=== PATIENT | female | born 1950 | race African-American/Black ===

== ENCOUNTER 2017-10-18 07:12 | Day surgery (SDC) | payer MEDICAID ==
[~2017-10-18] VITALS: Ht 162.6 cm; Wt 98.9 kg
[~2017-10-18 07:12] MED LIST: ALBU18HF2 IH; ASPI-867 PO; CHLO25TA2 PO; DICL100G31 TP; LIDO1ADH48 TP; LOSA50TA20 PO; MOME13HF IH
[2017-10-18] MEDS ORDERED: LACTATED RINGERS 1,000 ML IV SCH (08:30)
[2017-10-18] MEDS ORDERED: PROPOFOL 200MG/20ML VIAL IV ONE (10:11)
[2017-10-18] MEDS ORDERED: LIDOCAINE HCL/PF 1% 10 MG/ML 5ML VIAL ONE (10:11)
[2017-10-18] MEDS ORDERED: MIDAZOLAM HCL 2 MG/2 ML VIAL ONE (10:13)
[2017-10-18] MEDS ORDERED: ONDANSETRON HCL 4MG/2ML VIAL ONE (11:22)
[2017-10-18] MEDS ORDERED: ACETYLCHOLINE CHLORIDE INTRAOCULAR SOLUTION 1:100 ELECTROLYTE DILUENT IO ONE (15:06)
== END 2017-10-18 12:05 | disposition home or self-care (01) ==
LOC: OR 07:12
PROVIDERS: ATTEND Ophthalmology
DX: H40.9 Unspecified glaucoma (principal); I10 Essential (primary) hypertension; J45.909 Unspecified asthma, uncomplicated; Z79.82 Long term (current) use of aspirin; Z79.899 Other long term (current) drug therapy; Z98.890 Other specified postprocedural states; Z90.710 Acquired absence of both cervix and uterus; Z83.3 Family history of diabetes mellitus
CPT/HCPCS: 66170; J2250; J2405; J3490; J7120; J2704